=== PATIENT | male | born 1960 | race African-American/Black ===

== ENCOUNTER 2018-09-03 08:30 | Emergency (ER) | payer MEDICAID, OTHER ==
[~2018-09-03] VITALS: Ht 177.8 cm; Wt 73.0 kg
[~2018-09-03 08:30] MED LIST: HALDOL
[2018-09-03] MEDS ORDERED: IPRATROPIUM BROMIDE (0.02%) 0.5MG/2.5ML NEB HHN ONE (09:45)
[2018-09-03] MEDS ORDERED: PREDNISONE 20MG TABLET PO ONE (09:45)
[2018-09-03] MEDS ORDERED: ALBUTEROL (0.083%) 2.5MG/3ML NEB HHN ONE (09:45)
[2018-09-03 10:45] VITALS: BP 146/92
== END 2018-09-03 10:45 | disposition home or self-care (01) ==
LOC: ER 08:30
DX: R05 Cough (principal); M19.90 Unspecified osteoarthritis, unspecified site; J45.909 Unspecified asthma, uncomplicated; K21.9 Gastro-esophageal reflux disease without esophagitis; F17.290 Nicotine dependence, other tobacco product, uncomplicated
CPT/HCPCS: 71045; 94640; 99283; J7512; J7611